=== PATIENT | female | born 1995 | race Two or more races ===

== ENCOUNTER 2024-11-30 07:59 | Emergency (ER) | payer BC, SELFPAY ==
--- NOTE | 2024-11-30 | XR_ITS ---
MRI abdomen, without contrast. MRCP Date and time of exam: November 30, 2024 1102 hours INDICATIONS: Abdominal pain and vomiting beginning 4 days ago, gallbladder sonogram today gallstones thickened gallbladder wall, enlarged common bile duct Technique: Multiple axial and coronal images of the abdomen have been obtained with the Siemens 1.5T MRI scanner. Images obtained included T1 weighted transverse images, T2-weighted transverse images, T2-weighted transverse images fat-suppressed, T2 weighted haste fat suppressed transverse images, T1 weighted images, in and out of phase images, T2-weighted coronal images, breath hold, T2 weighted haze coronal images as well as T2 weighted coronal thick slab images, MRCP. Findings: Liver 15 cm Cholelithiasis Gallbladder wall edema Common hepatic duct 9 mm No definite stones Abrupt termination of the distal common bile duct axial image 16 No pancreatic mass No dilated pancreatic duct No hydronephrosis IMPRESSION: Acute calculus cholecystitis Enlarged common hepatic duct with abrupt termination of the distal common bile duct, recommend ERCP the follow-up to exclude malignant stricture of the distal common bile duct
[2024-11-30 08:00] VITALS: BMI 28.9
[2024-11-30 08:07] VITALS: BP 110/65; PULSE 76; RESP 16; TEMP 36.8; O2SAT 99; BMI 28.0
--- NOTE | 2024-11-30 08:21 | XR_ITS ---
Examination: Abdomen sonogram, Limited Date and time of exam: November 30, 2024 0925 hours INDICATIONS: Right upper abdominal pain beginning 4 days ago with nausea Technique: Real-time irvin scale transabdominal sonographic images of the upper abdomen obtained. Findings: 17 mm gallstone Gallbladder wall is thickened 0.78 cm, with edema Common bile duct is enlarged 11 mm incompletely visualized Pancreatic head 2.4 cm Liver 15.7 cm smooth contour No focal liver lesions Normal hepatopedal portal venous flow Patent IVC IMPRESSION: Cholelithiasis, suspicious for cholecystitis Abnormal enlargement common bile duct 11 mm, recommend MRCP follow-up to exclude common bile duct stones and confirm acute cholecystitis
--- NOTE | 2024-11-30 08:22 | PD.EDRME ---
Rapid Medical Screening Exam RME Arrival date/time: 11/30/24 07:59 29-year-old female history of cholelithiasis here with complaints of right upper quadrant epigastric abdominal pain since Wednesday associated with mild nausea. I have greeted and performed a focused initial assessment of this patient. Initial appropriate labs ordered at this time. A comprehensive ED assessment and evaluation of the patient and analysis of all test and completion of medical decision making process will be conducted by additional ED provider. Chief Complaint: Abdominal Pain Time Seen by Provider: 11/30/24 08:14 Vital signs: Vital Signs Temperature 98.2 F 11/30/24 08:07 Pulse Rate 76 11/30/24 08:07 Respiratory Rate 16 11/30/24 08:07 Blood Pressure 110/65 11/30/24 08:07 Pulse Oximetry (%) 99 11/30/24 08:07 Oxygen Delivery Method Room Air 11/30/24 08:07
[2024-11-30] MEDS: ONDANSETRON ODT 4 MG TABRAP PO (08:27)
[2024-11-30 08:52] LABS: Basophils # (Auto) 0.1 Thou/mm3 (0.0-0.2); Basophils % (Auto) 1 % (0-2.5); Eosinophils # (Auto) 0.1 Thou/mm3 (0.0-0.5); Eosinophils % (Auto) 1 % (0-10); Hematocrit 35.8 % (36.0-46.0); Hemoglobin 11.8 g/dL (12.0-16.0); Immature Granulocytes % (Auto) 0 % (0-0); Immature Granulocytes Auto 0.02 Thou/mm3 (0.00-0.00); Lymphocytes # (Auto) 1.3 Thou/mm3 (1.0-4.8); Lymphocytes % (Auto) 17 % (10-50); Mean Corpuscular Hemoglobin 26.1 pg (25.0-35.0); Mean Corpuscular Volume 79 fL (80-100); Monocytes # (Auto) 0.4 Thou/mm3 (0.0-0.8); Monocytes % (Auto) 6 % (0-12); Neutrophils # (Auto) 5.7 Thou/mm3 (1.8-7.7); Neutrophils % (Auto) 76 % (37-80); Nucleated Red Blood Cell % 0 /100 WBC (0); Platelet Count 290 Thou/mm3 (140-440); RDW Standard Deviation 37.7 fL (36.4-46.3); Red Blood Count 4.52 Miln/mm3 (4.00-5.20); White Blood Count 7.6 Thou/mm3 (3.6-11.0)
[2024-11-30 09:05] LABS: Collection Type, Urine Clean Catch
[2024-11-30 09:10] LABS: Bilirubin,Urine Negative (Negative); Blood,Urine Negative (Negative); Clarity,Urine Clear (Clear/Hazy); Color,Urine Lt-Yellow (Lt Yel-Yel); Glucose, Urine Negative (Negative); HCG Qualitative,Urine Negative; Ketones,Urine Negative (Negative); Leukocyte Esterase,Urine Negative (Negative); Nitrite,Urine Negative (Negative); PH,Urine 7.5 (5.0-7.0); Protein,Urine Negative (Neg - Trace); RBC,Urine 3 /hpf (0-3); Specific Gravity,Urine 1.021 (1.001-1.035); Squamous Epithelial Cell,Urine 3 /hpf (0-5); WBC,Urine 1 /hpf (0-5)
[2024-11-30 09:18] LABS: Alanine Aminotransferase 12 U/L (10-49); Albumin, Serum 4.5 gm/dL (3.5-5.0); Albumin/Globulin Ratio 1.7 (1.2-2.2); Alkaline Phosphatase 98 U/L (46-116); Anion Gap 7 (7-16); Aspartate Amino Transferase 13 U/L (0-34); BUN/Creatinine Ratio 10 Ratio (12-20); Bilirubin,Total 0.6 mg/dL (0.3-1.2); Blood Urea Nitrogen 8 mg/dL (9-23); Calcium 9.3 mg/dL (8.3-10.6); Calcium (Corrected) 9.3 mg/dL (8.5-10.1); Carbon Dioxide 26.8 mMol/L (20.0-31.0); Chloride 106 mMol/L (98-107); Creatinine (Component) 0.8 mg/dL (0.6-1.3); Estimated Creatinine Clearance 93.9 mL/min (>60); Globulin 2.7 gm/dL (2.3-3.5); Glucose 104 mg/dL (74-106); Lipase 41 U/L (12-53); Osmolality,Calculated 277 (275-295); Potassium 4.2 mMol/L (3.4-5.1); Sodium 140 mMol/L (136-145); Total Protein 7.2 gm/dL (5.7-8.2); eGFR > 60 See Note
[2024-11-30] MEDS: HYDROcodone/APAP 5/325 TABLET 1 TAB PO (10:49)
[2024-11-30] MEDS: MORPHINE SULF INJ 10 MG/ML VIAL 5 MG IM (14:21)
[2024-11-30] MEDS: ONDANSETRON INJ 2 MG/ML INJ 2 ML 4 MG IM (14:22)
--- NOTE | 2024-11-30 15:32 | PD.EDABDPN ---
ED Abdominal Pain RME/HPI General Chief Complaint: Abdominal Pain Stated complaint: EPIGASTRIC PAIN Time seen by provider: 11/30/24 08:14 Arrival date/time: 11/30/24 07:59 This is a 29-year-old female with no significant past medical history who presents to the emergency department with complaints of epigastric abdominal pain associated with nausea and vomiting for the past night. She has a known history of cholelithiasis, with her last gallbladder attack occurring approximately 2 years ago. She did not follow up with general surgery at that time. The patient denies fever, chills, or other systemic symptoms. Limitations: no limitations RME / HPI RME / HPI narrative: 11/30/24 07:59 29-year-old female history of cholelithiasis here with complaints of right upper quadrant epigastric abdominal pain since Wednesday associated with mild nausea. I have greeted and performed a focused initial assessment of this patient. Initial appropriate labs ordered at this time. A comprehensive ED assessment and evaluation of the patient and analysis of all test and completion of medical decision making process will be conducted by additional ED provider. Related Data Previous Rx's ?Medication ?Instructions ?Recorded ondansetron HCl 4 mg tablet 4 mg PO TID PRN nausea and 03/20/22 vomiting #20 tabs ibuprofen 600 mg tablet 600 mg PO Q8H PRN pain #20 tabs 06/17/23 hydrocodone 5 mg-acetaminophen 325 1 tab PO Q6H PRN pain #14 tabs 11/30/24 mg tablet ondansetron 4 mg disintegrating 4 mg PO Q8H PRN nausea and 11/30/24 tablet vomiting 3 days #14 tabs Allergies Allergy/AdvReac Type Severity Reaction Status Date / Time No Known Allergies Allergy Verified 11/30/24 08:02 ED Exam General Limitations: Present no limitations General appearance: Present alert and in no apparent distress Head Head exam: Present atraumatic Eye Eye exam: Present normal appearance, PERRL and EOMI ENT ENT exam: Present normal exam, normal oropharynx and mucous membranes moist Neck Neck exam: Present normal inspection, full ROM and trachea midline Chest Chest inspection: Present normal inspection and symmetric chest wall rise Respiratory Respiratory exam: Present normal lung sounds bilaterally Cardiovascular Cardiovascular exam: Present regular rate, normal rhythm and normal heart sounds Abdominal Exam Abdominal exam: Present soft and normal bowel sounds Extremities Exam Extremities exam: Present normal inspection and full ROM Back Exam Back exam: Present normal inspection and full ROM Neurological Exam Neurological exam: Present alert, oriented X3 and CN II-XII intact Psychiatric Psychiatric exam: Present normal affect and normal mood Skin Skin exam: Present warm, dry, intact and normal color Course Quality Measures none Orders Category Date Time Status COVID-19 Screening Questionnaire NOW Care 11/30/24 16:27 Active Decision to Admit X1 Care 11/30/24 16:27 Active Insert IV NOW Care 11/30/24 16:26 Active MRI Screening NOW Care 11/30/24 10:30 Active Consult to Gastroenterology Stat Cons 11/30/24 17:01 Ordered Consult to General Surgery Stat Cons 11/30/24 17:01 Ordered MR MRCP Stat Exams 11/30/24 Completed US gall bladder Stat Exams 11/30/24 08:21 Completed CBC Stat Lab 11/30/24 08:40 Completed CMP [Comprehensive Metabolic Panel] Stat Lab 11/30/24 17:20 Received Comprehensive Metabolic Panel Stat Lab 11/30/24 08:40 Completed HCG Qualitative,Urine Stat Lab 11/30/24 08:51 Completed Lipase Stat Lab 11/30/24 08:40 Completed Urinalysis Stat Lab 11/30/24 08:51 Completed HYDROcodone*/APAP 5/325 [Isle 5/325] Med 11/30/24 10:30 Discontinued 1 tab PO X1 ONE Metoclopramide Inj [Reglan Inj] Med 11/30/24 16:26 Discontinued 10 mg IVP X1 ONE Morphine Inj Med 11/30/24 14:02 Discontinued 5 mg IM X1 ONE Ondansetron Inj [Zofran Inj] Med 11/30/24 14:02 Discontinued 4 mg IM X1 ONE Ondansetron Odt [Zofran Odt] Med 11/30/24 08:21 Discontinued 4 mg PO X1 ONE Sodium Chloride 0.9% 1000 ml [Ns] 1,000 ml Med 11/30/24 16:26 Discontinued IV 999 mls/hr Vital Signs Vital signs: Vital Signs Temperature 98.2 F 11/30/24 08:07 Pulse Rate 76 11/30/24 08:07 Respiratory Rate 16 11/30/24 08:07 Blood Pressure 110/65 11/30/24 08:07 Pulse Oximetry (%) 99 11/30/24 08:07 Oxygen Delivery Method Room Air 11/30/24 08:07 Abdominal Pain MDM MDM Narrative [facility] Narrative:: 29-year-old female with known cholelithiasis presenting with epigastric abdominal pain, nausea, and vomiting. The patient underwent a full workup including CBC, CMP, lipase, and a right upper quadrant ultrasound. CBC showed no leukocytosis or bandemia, though mild anemia was noted. CMP revealed no acute renal dysfunction, with normal liver function tests and total bilirubin. Lipase was within normal limits. During the emergency department stay, the patient was initially treated with Zofran and Isle for nausea and pain; however, her pain did not significantly improve. She was then given 5 mg of IV morphine and an additional dose of Zofran, which provided only mild relief. Due to persistent epigastric pain, ongoing nausea, and active vomiting, I discussed the case with the on-call general surgeon, Dr. Ribera. Given the absence of leukocytosis or bandemia, he advised that the patient could potentially be followed on an outpatient basis. 1530-However, due to intractable pain and ongoing symptoms, I recontacted Dr. Ribera and he agreed to evaluate the patient for possible admission and surgical intervention. He advised the patient be kept NPO in the interim. The on-call hospitalist was contacted to arrange admission, with a consult to Dr. Ribera for further surgical evaluation. 1600-spoke with on-call hospitalist and would like a GI consult 1610-spoke with Dr. Coronel he advises due to normal LFTs and normal T. bili no indications for possible common bile duct stone. Admission in the hospital can continue 1755-There is a pending repeat CMP before patient is excepted to be admitted. Patient data External records reviewed:: [facility] previous records Clinical information provided by:: patient and family Social determinants that could affect healthcare access:: none Patient has the following chronic illnesses:: Cholelithiasis How is presenting disease/condition affected by chronic disease/condition?: exacerbated by Evaluation data The following diagnostics were reviewed and interpreted by me:: lab results and radiology exam(s) Lab and/or radiology exams considered but not ordered:: no Interpretation Summary: Examination: Abdomen sonogram, Limited Date and time of exam: November 30, 2024 0925 hours INDICATIONS: Right upper abdominal pain beginning 4 days ago with nausea Technique: Real-time irvin scale transabdominal sonographic images of the upper abdomen obtained. Findings: 17 mm gallstone Gallbladder wall is thickened 0.78 cm, with edema Common bile duct is enlarged 11 mm incompletely visualized Pancreatic head 2.4 cm Liver 15.7 cm smooth contour No focal liver lesions Normal hepatopedal portal venous flow Patent IVC IMPRESSION: Cholelithiasis, suspicious for cholecystitis Abnormal enlargement common bile duct 11 mm, recommend MRCP follow-up to exclude common bile duct stones and confirm acute cholecystitis MRI abdomen, without contrast. MRCP Date and time of exam: November 30, 2024 1102 hours INDICATIONS: Abdominal pain and vomiting beginning 4 days ago, gallbladder sonogram today gallstones thickened gallbladder wall, enlarged common bile duct Technique: Multiple axial and coronal images of the abdomen have been obtained with the Siemens 1.5T MRI scanner. Images obtained included T1 weighted transverse images, T2-weighted transverse images, T2-weighted transverse images fat-suppressed, T2 weighted haste fat suppressed transverse images, T1 weighted images, in and out of phase images, T2-weighted coronal images, breath hold, T2 weighted haze coronal images as well as T2 weighted coronal thick slab images, MRCP. Findings: Liver 15 cm Cholelithiasis Gallbladder wall edema Common hepatic duct 9 mm No definite stones Abrupt termination of the distal common bile duct axial image 16 No pancreatic mass No dilated pancreatic duct No hydronephrosis IMPRESSION: Acute calculus cholecystitis Enlarged common hepatic duct with abrupt termination of the distal common bile duct, recommend ERCP the follow-up to exclude malignant stricture of the distal common bile duct Medications / Prescriptions Medications or Prescriptions considered but not ordered:: no Medication administrations:: Medication Administration History Discontinued Medications Hydrocodone Bitart/Acetaminophen (Hydrocodone/Apap 5/325 Tablet) 1 tab PO X1 ONE Stop: 11/30/24 10:31 Last Admin: 11/30/24 10:49 Dose: 1 tab Documented By: OA Sodium Chloride (Ns) 1,000 mls @ 999 mls/hr IV .Q1H1M ONE Stop: 11/30/24 17:26 Metoclopramide HCl (Metoclopramide Inj 5 Mg/Ml Vial 2 Ml) 10 mg IVP X1 ONE; Protocol Stop: 11/30/24 16:27 Morphine Sulfate (Morphine Sulf Inj 10 Mg/Ml Vial) 5 mg IM X1 ONE Stop: 11/30/24 14:03 Last Admin: 11/30/24 14:21 Dose: 5 mg Documented By: OA Ondansetron HCl (Ondansetron Odt 4 Mg Tabrap) 4 mg PO X1 ONE Stop: 11/30/24 08:22 Last Admin: 11/30/24 08:27 Dose: 4 mg Documented By: OA Ondansetron HCl (Ondansetron Inj 2 Mg/Ml Inj 2 Ml) 4 mg IM X1 ONE; Protocol Stop: 11/30/24 14:03 Last Admin: 11/30/24 14:22 Dose: 4 mg Documented By: GIANCARLO All medications administered and effective Consultations Consultation(s) initiated? (list below): No Diagnosis Differential diagnosis abdominal pain: abdominal pain, acute appendicitis, calculus of kidney, constipation, gastroenteritis and pancreatitis Most likely diagnosis given after review of the tests above:: Acute cholelithiasis, intractable pain Admission Indicated Admission indicated?: indicated Admission Request Was there a request for admission?: Yes Admission Attestation Admission request attestation: Discussed case with [] from Hospitalist service regarding admission. Discussed patients ED course, exam findings, labs, and radiology results. The Hospitalist [agrees,declines] to accept the patient for admission. Disposition Plan Disposition Plan: Admit Discharge Plan Plan Patient Disposition: Admit Acute Care w/in Hospital Patient condition on transfer: Stable Prescriptions/Referrals Prescriptions/Med Rec: New hydrocodone-acetaminophen 5-325 mg tablet 1 tab PO Q6H MDD pain PRN (Reason: pain) Qty: 14 0RF ondansetron 4 mg tablet,disintegrating 4 mg PO Q8H PRN (Reason: nausea and vomiting) 3 Days Qty: 14 0RF No Action ondansetron HCl 4 mg tablet 4 mg PO TID PRN (Reason: nausea and vomiting) Qty: 20 0RF ibuprofen 600 mg tablet 600 mg PO Q8H PRN (Reason: pain) Qty: 20 0RF Referrals: Rosa Isela Ribera MD [Physician] - In 1 week El Angulo MD [Primary Care Provider] - In 1 week Problem List Clinical Impression: Intractable abdominal pain, Cholecystitis, acute with cholelithiasis Patient/Caregiver Discharge Instructions Discharge Activity: activity as tolerated Print Language: Senegalese Stand Alone Forms: Nita Award Info., Patient Portal Info Letter PA/LIZET Supervising Physician PA/LIZET Supervising Physician: Dr brito
[2024-11-30 15:41] VITALS: BP 116/71; PULSE 86; O2SAT 99
--- NOTE | 2024-11-30 17:21 | PD.RESCONSUL ---
HPI Data of Consult Primary Care Provider: El Angulo MD Consult Narrative Reason for consult: Acute cholecystitis History of present illness: 11/30/2024 Patient evaluated along with the internal medicine team Case fully discussed Repeat liver panel shows AST ALT in the 400 range it was normal earlier Recommendation is to transfer the patient to a tertiary center as she would need ERCP for further evaluation which is not available in the institution at the moment 29-year-old female with past medical history of gallstones, presenting to the ED on 11/30/2024 with abdominal pain which has progressively been worsening for the past week. Patient states that in the past she has had similar type of pain and she has been told that she has gallstones. Pain started roughly a week ago and is localized to the right upper quadrant and epigastric region and does radiate to the right flank region. Patient states that she has been nauseous and has vomited yellow/green but denies having any diarrhea, constipation, bleeding from vomit or stool. Patient states that she has not made any dietary changes and usually eats out often. Patient denies any other significant medical history and does not take any oral supplements or prescribed medications. Patient also otherwise denies having any fever/chills, chest pain/tightness, shortness of breath, dysuria and menstrual cycles have been regular except for the last one which was slightly more prolonged than usual. Medical history: As stated above Surgical history: Allergies: NKDA Medications: Denies taking any prescribed medications, herbal supplements or vitamins Family history: Patient denies any colon/liver cancer, patient's mother had cholecystectomy secondary to gallstones, patient's extended family members also have GI issues but she does not know diagnosis at this time Social history: Patient works in the cafeteria in school, lives in [place], denies any alcohol, tobacco or illicit drug use ROS: All 12 systems assessed and the patient denies unless otherwise stated in HPI cc:: cc: Exam Vital Signs Temp Pulse Resp BP Pulse Ox O2 Del Method 98.2 F 86 16 116/71 99 Room Air 11/30/24 08:07 11/30/24 15:41 11/30/24 08:07 11/30/24 15:41 11/30/24 15:41 11/30/24 08:07 Narrative Exam Physical Exam: GENERAL: Awake, answers questions appropriately, appears stated age HEENT: NC/AT. Moist mucosa. PERRLA/EOMI. CARDIO: Heart RRR, no obvious murmurs, no JVD. PULM: No coughing or visible SOB. Lungs CTA B/L. GI: Abdomen soft, mildly tender on right upper quadrants and epigastric regions, no guarding or rigidity noted. Rebound tenderness not appreciated. [place] apparent SKIN/MSK/EXT: No wounds/discoloration/rashes/edema/amputations noted. +Pedal pulses present B/L. NEURO: Oriented x3, Moves extremities x4, no focal neurologic deficits noted Results Labs 11/30/24 08:40 11/30/24 17:20 Labs: Short CBC 11/30/24 Range/Units 08:40 WBC 7.6 (3.6-11.0) Thou/mm3 Hgb 11.8 L (12.0-16.0) g/dL Hct 35.8 L (36.0-46.0) % Plt Count 290 (140-440) Thou/mm3 BMP 11/30/24 08:40 Sodium 140 Potassium 4.2 Chloride 106 Carbon Dioxide 26.8 BUN 8 L Creatinine 0.8 Glucose 104 Calcium 9.3 Liver Function 11/30/24 Range/Units 08:40 Total Bilirubin 0.6 (0.3-1.2) mg/dL AST 13 (0-34) U/L ALT 12 (10-49) U/L Alkaline Phosphatase 98 (46-116) U/L Albumin 4.5 (3.5-5.0) gm/dL Urine 11/30/24 Range/Units 08:51 Urine Color Lt-Yellow (Lt Yel-Yel) Urine Clarity Clear (Clear/Hazy) Urine pH 7.5 H (5.0-7.0) Ur Specific [place] 1.021 (1.001-1.035) Urine Protein Negative (Neg - Trace) Urine Glucose (UA) Negative (Negative) Quality Measures Quality Measures VTE prophylaxis Medications Home Medications and Allergies Allergies Allergy/AdvReac Type Severity Reaction Status Date / Time No Known Allergies Allergy Verified 11/30/24 08:02 Visit Medications Sodium Chloride (Ns) 1,000 mls @ 999 mls/hr IV .Q1H1M ONE Stop: 11/30/24 17:26 Discontinued Medications Hydrocodone Bitart/Acetaminophen (Hydrocodone/Apap 5/325 Tablet) 1 tab PO X1 ONE Stop: 11/30/24 10:31 Last Admin: 11/30/24 10:49 Dose: 1 tab Metoclopramide HCl (Metoclopramide Inj 5 Mg/Ml Vial 2 Ml) 10 mg IVP X1 ONE; Protocol Stop: 11/30/24 16:27 Morphine Sulfate (Morphine Sulf Inj 10 Mg/Ml Vial) 5 mg IM X1 ONE Stop: 11/30/24 14:03 Last Admin: 11/30/24 14:21 Dose: 5 mg Ondansetron HCl (Ondansetron Odt 4 Mg Tabrap) 4 mg PO X1 ONE Stop: 11/30/24 08:22 Last Admin: 11/30/24 08:27 Dose: 4 mg Ondansetron HCl (Ondansetron Inj 2 Mg/Ml Inj 2 Ml) 4 mg IM X1 ONE; Protocol Stop: 11/30/24 14:03 Last Admin: 11/30/24 14:22 Dose: 4 mg Assessment & Plan Plan #Acute calculous cholecystitis #Cholelithiasis #Distended common bile duct #Spasm of the sphincter of Oddi As per HPI, patient does have history of gallstones in the past which have been symptomatic but she has no surgery for it Patient is presenting with a 1 week progressive right upper quadrant/epigastric pain which radiates to the right flank In the ED, patient's vitals were stable and on examination patient does have some right upper quadrant/epigastric tenderness to palpation Lab findings include no white count, liver function enzymes within normal limit, lipase within normal limit Urinalysis is negative for any acute infections and urine test is negative Patient given Zofran for nausea, morphine 5 mg and hydrocodone 1 tablet for pain along with 1 L IV fluid resuscitation in the emergency room Gallbladder ultrasound shows cholelithiasis with suspicion for cholecystitis along with an abnormally enlarged common bile duct 11 mm MRCP shows acute calculus cholecystitis with an enlarged common hepatic duct with abrupt termination of the distal common bile duct Plan: Repeat liver function enzymes; if the patient's liver functions continue to elevate and pain worsens - will consider ERCP but suspicion is low at this time; spasm more likely Multimodal pain management Zofran for nausea Refer to general surgery for laparoscopic cholecystectomy #Microcytic anemia Rest of medical problems to be managed by hospitalist team Thank you for the opportunity to participate in the care of this patient
[2024-11-30] MEDS: SODIUM CHLORIDE 0.9% 1000 ML 1,000 ML 999 ML IV (18:00)
--- NOTE | 2024-11-30 18:11 | PD.RESEVENT ---
Documentation for date of: 11/30/24 Event Note Event Note: 29 y/o female patient with significant medical history of cholelithiasis came to ED for RUQ pain with associated symptoms of NV x1 day. Patient had similar symptoms x2 years ago and was to follow up with general surgeon but never did. She has been having intermittent pain over the last couple years but they have lasted for only few hours to a day. This time pain has been constant since x3 days ago. In ED vitals were WNL and labs unremarkable. However, abdominal US and MRCP indicated cholecystitis with gallbladder edemma, 9mm common bile duct with abrupt termination of distal common bile duct. ED consulted general surgeon Dr. Ribera who rec to keep patient NPO and admit. GI Dr. Coronel was also consulted. Patient was seen in ED, primary team believes CMP/LFT needs to be repeated (which is pending currently) for assurance. Patient will be signed off to night team. This patient care was discussed with my attending Dr. Tana Lazo MD PGY-2 Disclaimer: Minor errors in loft worker pile driving may be present since this note was dictated by speech recognition software.
[2024-11-30 18:43] LABS: Alanine Aminotransferase 236 U/L (10-49); Albumin, Serum 4.3 gm/dL (3.5-5.0); Albumin/Globulin Ratio 1.5 (1.2-2.2); Alkaline Phosphatase 127 U/L (46-116); Anion Gap 11 (7-16); Aspartate Amino Transferase 401 U/L (0-34); BUN/Creatinine Ratio 13 Ratio (12-20); Bilirubin,Total 1.3 mg/dL (0.3-1.2); Blood Urea Nitrogen 10 mg/dL (9-23); Calcium 9.7 mg/dL (8.3-10.6); Calcium (Corrected) 9.7 mg/dL (8.5-10.1); Carbon Dioxide 26.1 mMol/L (20.0-31.0); Chloride 104 mMol/L (98-107); Creatinine (Component) 0.8 mg/dL (0.6-1.3); Estimated Creatinine Clearance 93.9 mL/min (>60); Globulin 2.8 gm/dL (2.3-3.5); Glucose 107 mg/dL (74-106); Osmolality,Calculated 280 (275-295); Sodium 141 mMol/L (136-145); Total Protein 7.1 gm/dL (5.7-8.2); eGFR > 60 See Note
--- NOTE | 2024-11-30 19:03 | EDNOTE_ITS ---
Emergency Room Addendum Addendum Narrative: Care received from colleague. Bili (0.6 to 1.3) and LFTs were increased with repeat CMP. Spoke to IM resident upstairs who confirmed patient needs to be transferred. Spoke to Drs. Ribera and Homer who agreed with plan. Spoke with MAXIMO Mcgee at [facility], who accepts patient for transfer. Toradol improved patient's pain from 8 to 3. Patient is no longer nauseous.
[2024-11-30] MEDS: METOCLOPRAMIDE INJ 5 MG/ML VIAL 2 ML 10 MG IVP (19:19)
[2024-11-30] MEDS: KETOROLAC INJ 30 MG/ML VIAL IVP (19:20)
--- NOTE | 2024-11-30 19:31 | PD.RESEVENT ---
Documentation for date of: 11/30/24 Event Note Event Note: The patient is a 29-year-old female with significant past medical history of cholelithiasis presented to ED with chief complaint of right upper quadrant pain associated with nausea and vomiting for 1 day. Patient had similar symptoms twice a year ago and was to follow-up with general surgeon but never did. She has been having intermittent abdominal pain over the last couple years that used to last only for few hours to a day. However, this time her pain was constant for past 3 days. The patient abdominal US and MRCP indicated cholecystitis with gallbladder edema, 9 mm common bile duct with abrupt termination of the distal common bile duct. Initially chemistry panel were WNL, but repeat chemistry panel revealed elevated liver enzymes and total bilirubin with AST/ALT 401/236 and 1.3 respectively. The patient would require ERCP and the decision was made to transfer the patient to higher center for further management of abdominal pain and ERCP. the ED physician was made aware of this, and requested to initiate the transfer process. The patient's management plan was discussed with my attending physician MD Andre Garcia MD, PGY2
--- NOTE | 2024-11-30 22:37 | PC.NURSE ---
PT WAS ACCEPTED TO [facility] BY DR. HENSLEY. THIS IS A ER:ER TRANSFER AND NUMBER FOR REPORT IS [phone]. TSERING WAS THE FACILITY REP I SPOKE WITH FOR ACCEPTING INFORMATION.
[2024-11-30 23:27] VITALS: BP 95/58; PULSE 59; RESP 16; TEMP 36.7; O2SAT 97
== END 2024-12-01 00:15 | disposition short-term general hospital (02) ==
PROVIDERS: Nurse Practitioner Primary Care; Emergency Provider Family Medicine; PCP Family Medicine
DX: K80.00 Calculus of gallbladder with acute cholecystitis without obstruction (principal)
CPT/HCPCS: 36415; 76705; 80053; 81001; 81025; 83690; 85025; 96372; 99285; J1885; J2270; J2405; J2765; J7030; Q0162; S8037; 74181; A9270